=== PATIENT | male | born 1975 | race Two or more races ===

== ENCOUNTER 2019-10-07 11:13 | Emergency (ER) | payer OTHER ==
--- NOTE | 2019-10-07 12:00 | ED Physician Documentation ---
PD HPI UPPER EXT INJURY - Stated complaint Stated Complaint: L HAND INJURY - Chief complaint Chief Complaint: Wound - History obtained from History obtained from: Patient - History of Present Illness Location: Left, Hand, Finger (base of thumb at thenar muscle area dorsally.) Type of injury: Puncture wound (he was using power drill and wood slipped, leading to drill bit entering dorsal thenar area and coming out webspace close to base of thumb. He says bled well for few minutes. No numbness in finger/thumb. Able to move thumb but some pain with movement.) Where injury occurred: Work Timing - onset: How many hours ago (1), Today Timing - details: Abrupt onset, Still present (not bleeding any more but still hurts with ROM.) Improved by: Rest Worsened by: Moving, Palpating Associated symptoms: No: Weakness, Numbness, Tingling Similar symptoms before: Has not had sx before Review of Systems Constitutional: denies: Fever Nose: denies: Rhinorrhea / runny nose, Congestion Throat: denies: Sore throat Respiratory: denies: Cough Neurologic: denies: Focal weakness, Numbness PD PAST MEDICAL HISTORY - Past Medical History Past Medical History: No - Allergies Allergies/Adverse Reactions: Allergies Allergy/AdvReac Type Severity Reaction Status Date / Time No Known Drug Allergies Allergy Verified 10/07/19 11:29 PD ED PE NORMAL - Vitals Vital signs reviewed: Yes - General General: Alert and oriented X 3, No acute distress, Well developed/nourished - Derm Derm: Normal color, Warm and dry - Extremities Extremities: Other (left hand with small puncture without FB nor bleeding at dorsal aspect thenar area near base of thmub, with smaller puncture at webspace near base of thumb. the 2 sites are about 3 cm apart. No bony tenderness. ) - Neuro Neuro: No motor deficit (he has good ROM with pain only on opposition of thumb to index finger. ), No sensory deficit Results - Vitals Vitals: Vital Signs - 24 hr 10/07/19 10/07/19 11:24 12:50 Temperature 36.8 C Heart Rate 70 59 L Respiratory 18 20 Rate Blood Pressure 118/74 116/79 O2 Saturation 96 97 Oxygen O2 Source Room air PD MEDICAL DECISION MAKING - ED course Complexity details: considered differential (does not seem to have any bony injury clinicially and the entry/exit line would not go through any bony area. CLeansed and banndages in ER. Tdap update given (he says at least 5-6 years but could be more). ), d/w patient Departure - Departure Disposition: 01 Home, Self Care Clinical Impression: Puncture wound of thumb Qualifiers: Encounter type: initial encounter Laterality: left Qualified Code(s): S61.032A - Puncture wound without foreign body of left thumb without damage to nail, initial encounter Condition: Stable Record reviewed to determine appropriate education?: Yes Instructions: ED Wound Puncture General Comments: Use the thumb splint to protect range of motion for the next several days until it is feeling better. Expect some bruising to show up in the next couple of days from the injury is likely there is some blood under the skin. Anti-inflammatories such as ibuprofen 3 times a day. To that add Tylenol if needed for pain. Activity as tolerated. Recheck if signs of infection otherwise I would anticipate healing over the next week or so. Discharge Date/Time: 10/07/19 13:02
[2019-10-07] MEDS ORDERED: IBUPROFEN 600 MG TABLET PO STA (12:18)
[2019-10-07] MEDS ORDERED: TETANUS/DIPHTHERIA/PERTUSSIS 0.5 ML SYRINGE IM ONE (12:18)
[2019-10-07 12:50] VITALS: BP 116/79
== END 2019-10-07 13:02 | disposition home or self-care (01) ==
LOC: ED 11:13
DX: S61.432A Puncture wound without foreign body of left hand, initial encounter (principal); W29.8XXA Contact with other powered hand tools and household machinery, initial encounter; Y93.89 Activity, other specified; Y99.0 Civilian activity done for income or pay; Z23 Encounter for immunization
CPT/HCPCS: 90471; 90715; 99282; 99283; A9270